=== PATIENT | male | born 1935 | race Caucasian/White ===

== ENCOUNTER 2017-10-09 11:07 | Day surgery (SDC) | payer MEDICARE, BC ==
[~2017-10-09] VITALS: Ht 177.8 cm; Wt 87.2 kg
[2017-10-09] VITALS (10 sets, daily range): BP systolic 123–154; BP diastolic 75–95; PULSE 63–79; TEMP 97.3–97.4
[~2017-10-09 11:07] MED LIST: CENTRUM SILVER1 CTB PO; EPA FISH OIL1 SGL PO; GINKO; IBUPROFEN 200200 MG PO; MAG-OX 400400 MG/TAB PO; MOTRIN 200200 MG/TAB PO; SAW PALMETTO PO; VITAMIN E 400 U4001 PO; VITAMIN E800 IU PO
[2017-10-09] MEDS ORDERED: TRUSOPT OCUMETE10 ML (11:31)
[2017-10-09] MEDS ORDERED: VITAMINC1000TA PO (16:43)
[2017-10-09] MEDS ORDERED: VITAMIN D31000 I1 PO (16:44)
[2017-10-10 00:13] VITALS: BP 123/72; PULSE 68; TEMP 98.1
[2017-10-10 04:57] VITALS: BP 128/72; PULSE 64; TEMP 98.2
[2017-10-10 10:14] VITALS: BP 128/75; PULSE 77; TEMP 98.1
== END 2017-10-10 13:50 | disposition home or self-care (01) ==
LOC: SDCO 11:07 → SURG 15:52 → SDCO 10-10 13:50
DX: C67.5 Malignant neoplasm of bladder neck (principal); C61 Malignant neoplasm of prostate; N30.90 Cystitis, unspecified without hematuria; H40.9 Unspecified glaucoma; Z87.891 Personal history of nicotine dependence; Z80.0 Family history of malignant neoplasm of digestive organs; Z68.24 Body mass index [BMI] 24.0-24.9, adult
CPT/HCPCS: OP; A9284; C1769; C2617; J0360; J0690; J1100; J2405; J2704; J3010; J7120; Q9967

== ENCOUNTER 2017-10-22 21:00 | Emergency (ER) | payer MEDICARE, BC ==
[~2017-10-22] VITALS: Ht 177.8 cm; Wt 79.5 kg
[~2017-10-22 21:00] MED LIST changes: +TRUSOPT OCUMETE10 ML; +VITAMIN D31000 I1 PO; +VITAMINC1000TA PO
[2017-10-22 21:05] VITALS: BP 190/101; TEMP 98.8
[2017-10-22 22:48] VITALS: PULSE 85
[2017-10-22] MEDS ORDERED: MACROBID 1100 MG/CAP PO (22:56)
[2017-10-22] MEDS ORDERED: PYRIDIUM 100MG100 MG PO (23:25)
[2017-10-22] MEDS ORDERED: COSOPT 2%-0.5%10 ML OU (23:25)
== END 2017-10-22 23:00 | disposition home or self-care (01) ==
LOC: COL.ER 21:00
DX: R33.9 Retention of urine, unspecified (principal); Z87.430 Personal history of prostatic dysplasia

== ENCOUNTER → 2018-02-26 | Outpatient (CLI) | payer MEDICARE, BC ==
[~2018-02-26] MED LIST changes: +COSOPT 2%-0.5%10 ML OU; +MACROBID 1100 MG/CAP PO; +PYRIDIUM 100MG100 MG PO
== END ==
LOC: COL.RAD 07:43
DX: N28.9 Disorder of kidney and ureter, unspecified (principal); N32.89 Other specified disorders of bladder; N13.2 Hydronephrosis with renal and ureteral calculous obstruction; Q63.1 Lobulated, fused and horseshoe kidney; N28.1 Cyst of kidney, acquired; K76.89 Other specified diseases of liver; K42.9 Umbilical hernia without obstruction or gangrene; Z85.51 Personal history of malignant neoplasm of bladder; Z85.46 Personal history of malignant neoplasm of prostate
CPT/HCPCS: Q9967

== ENCOUNTER 2018-03-19 13:07 | Day surgery (SDC) | payer MEDICARE, BC ==
[~2018-03-19] VITALS: Ht 179.1 cm; Wt 71.4 kg
[~2018-03-19 13:07] MED LIST changes: +COSOPT 2%-0.5%10 ML OD; -COSOPT 2%-0.5%10 ML OU
[2018-03-19] MEDS ORDERED: TIMOLOL MALEATE5 M1 OD (13:25)
[2018-03-19] MEDS ORDERED: AVODART 0.5MG0.5 MG PO (13:26)
[2018-03-19] MEDS ORDERED: FLOMAX 0.40.4 MG/CAP PO (13:26)
[2018-03-19 13:33] VITALS: BP 142/87; PULSE 78; TEMP 98.1
[2018-03-19 17:00] VITALS: BP 133/76; PULSE 78
[2018-03-19 17:15] VITALS: BP 128/73; PULSE 68
[2018-03-19 17:30] VITALS: BP 126/66; PULSE 96
[2018-03-19 17:34] VITALS: TEMP 97.6
[2018-03-19 17:45] VITALS: BP 125/77; PULSE 79
== END 2018-03-19 19:40 | disposition home or self-care (01) ==
LOC: SDCO 13:07 → SURG 17:15 → SDCO 19:40
DX: N20.1 Calculus of ureter (principal); C66.1 Malignant neoplasm of right ureter; Z85.46 Personal history of malignant neoplasm of prostate; Z85.51 Personal history of malignant neoplasm of bladder; Z88.2 Allergy status to sulfonamides; Z87.891 Personal history of nicotine dependence
CPT/HCPCS: OP; C1769; J0690; J1100; J2405; J2704; J3010; Q9967

== ENCOUNTER 2018-05-28 08:02 | Day surgery (SDC) | payer MEDICARE, BC ==
[~2018-05-28] VITALS: Ht 170.2 cm; Wt 69.7 kg
[~2018-05-28 08:02] MED LIST changes: +AVODART 0.5MG0.5 MG PO; +FLOMAX 0.40.4 MG/CAP PO; +GINKGO60 MG PO; +MAGNESIUM CITR100 MG PO; +TIMOLOL MALEATE5 M1 OD
[2018-05-28 08:46] LABS: BASO # 0.1 (0.0-0.2); BASO % 1.1 % (0.0-2.0); EOS # 0.2 (0.0-0.7); EOS % 3.4 % (0-4.0); GRAN # 2.7 (1.4-6.5); GRAN % 51.6 % (42.2-75.2); HEMATOCRIT 43.4 % (42.0-52.0); HEMOGLOBIN 14.6 g/dl (13.5-18.0); LYMPH # 1.6 (1.2-3.4); LYMPH % 30.7 % (20.0-51.0); MEAN CELL VOLUME 96 fl (80.0-100.0); MEAN CORPUSCULAR HEMOGLOBIN 32 pg (27.0-31.0); MEAN CORPUSCULAR HGB CONC 34 g/dl (33.0-37.0); MEAN PLATELET VOLUME 8.8 fl (7.4-10.4); MONO # 0.7 (0.1-0.6); MONO % 12.8 % (1.7-9.3); PLATELET COUNT 262 K/mm3 (130-400); RED BLOOD COUNT 4.53 M/mm3 (4.20-5.60); REDCELL DISTRIBUTION WIDTH-CV 13.6 % (11.5-14.5)
[2018-05-28] MEDS ORDERED: VITAMIN C500 MG PO (09:13)
[2018-05-28] MEDS ORDERED: BETIMOL 0.5% OPH5 ML OD (09:17)
[2018-05-28] MEDS ORDERED: XALATAN EYE DROPS OD (09:18)
[2018-05-28 09:19] VITALS: BP 153/81; PULSE 64; TEMP 97.6
[2018-05-28 12:47] VITALS: TEMP 97.8
[2018-05-28 13:15] VITALS: BP 128/71; PULSE 64
[2018-05-28 13:30] VITALS: BP 121/65; PULSE 62
[2018-05-28 13:45] VITALS: BP 136/77; PULSE 67
[2018-05-28] MEDS ORDERED: NORCO 325 MG-51 TAB PO (13:54)
[2018-05-28 14:00] VITALS: BP 121/68; PULSE 68
== END 2018-05-28 14:37 | disposition home or self-care (01) ==
LOC: SDCO 08:02
PROVIDERS: Urology
DX: K40.90 Unilateral inguinal hernia, without obstruction or gangrene, not specified as recurrent (principal); C67.5 Malignant neoplasm of bladder neck; R35.0 Frequency of micturition; R35.1 Nocturia; Z85.46 Personal history of malignant neoplasm of prostate; Z85.51 Personal history of malignant neoplasm of bladder; Z79.899 Other long term (current) drug therapy; Z87.891 Personal history of nicotine dependence; Z80.0 Family history of malignant neoplasm of digestive organs; Z86.010 Personal history of colon polyps
CPT/HCPCS: C1769; C1781; J0690; J1100; J1885; J2405; J2704; J2710; J3010; J7120

== ENCOUNTER 2020-07-08 14:21 | Inpatient (IN) | payer MEDICARE, BC ==
[~2020-07-08] VITALS: Ht 177.8 cm; Wt 63.6 kg
[~2020-07-08 14:21] MED LIST changes: +BETIMOL 0.5% OPH5 ML OD; +CARDURA4 MG PO; +ISTALOL 2.5 ML2.5 ML OD; +NORCO 325 MG-51 TAB PO; +VITAMIN C500 MG PO; +XALATAN EYE DROPS OD
[2020-07-08 15:16] LABS: BASO % 0.3 % (0.0-2.0); EOS % 0.1 % (0-4.0); GRAN # 11.8 (1.4-6.5); GRAN % 86.8 % (42.2-75.2); HEMOGLOBIN 11.9 g/dl (13.5-18.0); LYMPH % 7.3 % (20.0-51.0); MEAN CELL VOLUME 96 fl (80.0-100.0); MEAN CORPUSCULAR HEMOGLOBIN 33 pg (27.0-31.0); MEAN CORPUSCULAR HGB CONC 34 g/dl (33.0-37.0); MEAN PLATELET VOLUME 8.9 fl (7.4-10.4); MONO # 0.7 (0.1-0.6); MONO % 4.8 % (1.7-9.3); PLATELET COUNT 274 K/mm3 (130-400); RED BLOOD COUNT 3.65 M/mm3 (4.20-5.60)
[2020-07-08 15:17] LABS: HEMATOCRIT 35.1 % (42.0-52.0)
[2020-07-08 15:24] LABS: INR 1.1 (0.8-3.0); PROTHROMBIN TIME 11.9 SECONDS (9.7-12.8)
[2020-07-08 15:25] LABS: ALANINE AMINOTRANSFERASE 29 U/L (4-49); ALBUMIN 3.9 gm/dL (3.5-5.0); ALKALINE PHOSPHATASE 75 U/L (50-136); ANION GAP 6 mmol/L (7-16); AST,SGOT 45 U/L (15-37); BILIRUBIN,TOTAL 0.6 mg/dL (0.0-1.0); BLOOD UREA NITROGEN 27 mg/dL (9-20); CALCIUM 9.3 mg/dL (8.4-10.2); CARBON DIOXIDE 27 mmol/L (22-30); CHLORIDE 101 mmol/L (98-107); CREATININE, serum 0.73 (0.66-1.25); GLUCOSE 113 mg/dL (74-106); POTASSIUM 4.6 mmol/L (3.4-5.0); SODIUM 134 mmol/L (137-145)
[2020-07-08 15:49] LABS: TROPONIN-I < 0.012 ng/mL (0.000-0.035)
[2020-07-08 17:02] LABS: COLLECTION METHOD CLEAN CATCH
[2020-07-08 17:03] VITALS: BP 130/73; PULSE 87; TEMP 98.3
[2020-07-08 17:20] LABS: AMORPHOUS CRYSTAL Present /uL; PH 7 (5-8); SQUAMOUS EPITHELIAL None Seen /hpf; URINE APPEARANCE Cloudy; URINE BACTERIA Moderate /hpf; URINE BILIRUBIN Negative (NEGATIVE); URINE BLOOD 2+ (NEGATIVE); URINE COLOR Yellow; URINE GLUCOSE Negative (NEGATIVE); URINE KETONE 1+ (NEGATIVE); URINE LEUKOCYTE ESTERASE 2+ (NEGATIVE); URINE NITRATE Negative (NEGATIVE); URINE PROTEIN(semi-quant) 2+ (NEGATIVE); URINE RBC >50 /hpf; URINE UROBILINOGEN Negative (NEGATIVE)
--- NOTE | 2020-07-08 19:34 | NUR ---
Patient admitted to room 327. Inital, 5 page, & med rec completed. Patient alert & oriented. Denies the need for pain medication at this time. all setteled in room. Bedside report to Kaelyn RN
[2020-07-08 20:46] VITALS: BP 119/73; PULSE 81; TEMP 98
[2020-07-08] MEDS ORDERED: MELATONIN3 M1 PO (22:22)
--- NOTE | 2020-07-08 22:30 | NUR ---
PT ASKING FOR TYLENOL FOR RT LEG PAIN. IS ALERT AND ORIENTED X4. DOES OWN HS EYE DROPS. VOIDING PER URINAL WITHOUT PROBLEM. IS NPO AFTER MIDNIGHT FOR AM SURGERY.
--- NOTE | 2020-07-08 23:15 | NUR ---
ASKING FOR STRONGER PAIN MED, MORPHINE 2MG IVP GIVEN AT THIS TIME.
--- NOTE | 2020-07-08 23:23 | NUR ---
DR VENICE ABBOTT FOR PATIENT TO HAVE MELATONIN 6MG PO FOR SLEEP, GIVEN AT THIS TIME.
[2020-07-09] VITALS (12 sets, daily range): BP systolic 94–114; BP diastolic 48–79; PULSE 63–89; TEMP 97.3–98.6
--- NOTE | 2020-07-09 06:00 | NUR ---
PT HAS BEEN NPO SINCE MIDNIGHT FOR SURGERY THIS AM. NECKLACE REMOVED AND RING TAPED. PREOP CHECK LIST DONE.
--- NOTE | 2020-07-09 06:25 | NUR ---
To surgery per bed.
--- NOTE | 2020-07-09 09:49 | NUR ---
PT TO ROOM 327 PER BED WITH REPORT FROM MIKEY BERRIOS PACU @6725. PT IS A/O X3, LUNGS CLEAR, BOWEL SOUNDS PRESENT. DRESSING TO RIGHT HIP CDI WITH BULKY DRESSINGS OVER INCISION. PT HAD HEMIARTHROPLASTY WITH DR SONG.
--- NOTE | 2020-07-09 10:22 | NUR ---
HOSPITALIST IN TO SEE PT. CONTACTED AND GAVE UPDATES. PT RESTING VSS. DRESSING TO RIGHT HIP CDI.
--- NOTE | 2020-07-09 12:42 | NUR ---
Professor Of Art History offered prayer and support with patient.
[2020-07-09 15:28] LABS: BASO % 0.3 % (0.0-2.0); EOS % 0.1 % (0-4.0); GRAN # 11.1 (1.4-6.5); GRAN % 82.2 % (42.2-75.2); HEMATOCRIT 36.1 % (42.0-52.0); HEMOGLOBIN 11.9 g/dl (13.5-18.0); LYMPH # 1.2 (1.2-3.4); LYMPH % 8.7 % (20.0-51.0); MEAN CELL VOLUME 97 fl (80.0-100.0); MEAN CORPUSCULAR HEMOGLOBIN 32 pg (27.0-31.0); MEAN CORPUSCULAR HGB CONC 33 g/dl (33.0-37.0); MEAN PLATELET VOLUME 9.1 fl (7.4-10.4); MONO # 1.1 (0.1-0.6); MONO % 8.3 % (1.7-9.3); PLATELET COUNT 264 K/mm3 (130-400); RED BLOOD COUNT 3.71 M/mm3 (4.20-5.60); REDCELL DISTRIBUTION WIDTH-CV 14.3 % (11.5-14.5)
[2020-07-09 15:35] LABS: ALBUMIN 3.3 gm/dL (3.5-5.0); BILIRUBIN,TOTAL 0.3 mg/dL (0.0-1.0); CALCIUM 9.1 mg/dL (8.4-10.2); CREATININE, serum 0.69 (0.66-1.25); POTASSIUM 3.9 mmol/L (3.4-5.0)
--- NOTE | 2020-07-09 16:03 | NUR ---
SW met with patient to complete intake. Patient states that he lives in [place] with is Susanne [phone]. Patient provides that he currently does not utilize a walker or a cane. Patient recently had a hip fracture and will potentially need DME upon discharge, as well as PT/OT services, if not placed in rehab facility for strengthening. Patient provides that his PCP is Dr. Carrion, pharmacy is [facility], and that he is able to afford his medications at this time. Patient provides that his Susanne has been appointed as his DPOA-HC. SW will continue to follow.
--- NOTE | 2020-07-09 16:10 | NUR ---
MARIBELL called patient's spouse to inquire about DPOA documentation. Susanne stated that she has the documentation and will bring it by some time tomorrow 07/10/20. MARIBELL will continue to follow.
--- NOTE | 2020-07-09 17:26 | NUR ---
REPORT TO ROSY BERRIOS.
--- NOTE | 2020-07-09 21:23 | NUR ---
Medicated with HS meds including [place] 1 tab for rt leg and left heel pain. Is alert and oriented x4. Has large bulky drsg to right hip, ice pack placed. Has cerda catheter to BSD with yellow urine. Denies desire to brush teeth at this time. SL to right AC flushes well, scheduled Toradol given. SCDS and TEDS on.
[2020-07-10 00:18] VITALS: BP 97/62; PULSE 70; TEMP 98
[2020-07-10 03:47] VITALS: BP 104/67; PULSE 88; TEMP 97.9
--- NOTE | 2020-07-10 06:29 | NUR ---
Ortho here, changes drsg to right hip.
[2020-07-10 06:58] LABS: CREATININE, serum 0.72 (0.66-1.25); POTASSIUM 4.3 mmol/L (3.4-5.0)
[2020-07-10 07:40] LABS: BASO # 0.1 (0.0-0.2); BASO % 0.5 % (0.0-2.0); EOS # 0.2 (0.0-0.7); EOS % 1.4 % (0-4.0); GRAN % 72.7 % (42.2-75.2); HEMOGLOBIN 11.4 g/dl (13.5-18.0); LYMPH # 1.6 (1.2-3.4); LYMPH % 14.4 % (20.0-51.0); MEAN CELL VOLUME 97 fl (80.0-100.0); MEAN CORPUSCULAR HEMOGLOBIN 33 pg (27.0-31.0); MEAN CORPUSCULAR HGB CONC 34 g/dl (33.0-37.0); MEAN PLATELET VOLUME 9.2 fl (7.4-10.4); MONO # 1.2 (0.1-0.6); MONO % 10.6 % (1.7-9.3); PLATELET COUNT 250 K/mm3 (130-400); RED BLOOD COUNT 3.51 M/mm3 (4.20-5.60); REDCELL DISTRIBUTION WIDTH-CV 14.3 % (11.5-14.5)
[2020-07-10 07:45] VITALS: BP 123/77; PULSE 92; TEMP 98.1
--- NOTE | 2020-07-10 09:45 | NUR ---
Patient alert and oriented, answers questions appropriately. See assessment. Right hip dressing CDI, no redness or drainage noted. Slight edema noted to right hip, pulses palpable, neuros intact. No c/o numbness or tingling. Post op exercises reviewed with patient. FWB with walker and SBA. No c/o at this time.
[2020-07-10 11:16] VITALS: BP 113/75; PULSE 86; TEMP 97.7
--- NOTE | 2020-07-10 12:56 | NUR ---
SW received referal for IPR for patient. CHINYERE met patient at his bedside to discuss options and provide patient with med.gov compare forms. Patient adamately refused services, indicating that her receives services from [facility]." SW reported speaking to patients nurses who tend to feel that patient may need more intense services, and IPR would meet those needs. Patient continued to decline IPR services, reporting that his would not like it and that he did not "want to live here." CHINYERE tried to explain services, and benefits to receiving IPR care, and asked if perhaps the situation could be discussed with his to see her view on this situation. Patient verbally agreed that Chinyere could speak to his , and indicated that he is going to call her before i did. CHINYERE called Patients Susanne at [phone], who also indicated that they would have to discuss different options because she feels like she can take care of her at home, and he would not like being in a facility for several weeks. CHINYERE then contacted hospitalist and informed her of patients concerns. Hospitalist said she would speak to facility doctor, and will update CHINYERE.
[2020-07-10 14:55] VITALS: BP 126/69; PULSE 94; TEMP 97.8
--- NOTE | 2020-07-10 18:25 | NUR ---
Shaffer catheter removed per drs order at 1800, tolerated well.
[2020-07-10 21:07] VITALS: BP 115/68; PULSE 95; TEMP 98
--- NOTE | 2020-07-10 21:30 | NUR ---
PT IN BED. IS ALERT AND ORIENTED X4. REPORTS NO PAIN TO RIGHT HIP. AQUACEL DRSG INTACT WITH ICE PACK ON. HAS SL TO RIGHT AC, LAST DOSE OF TORADOL GIVEN. PT REPORTS HE IS GOING HOME TOMORROW AND NOT GOING TO ANY REHAB. HAS VOIDED PER URINAL X1. TAKES HS MEDS WITHOUT PROBLEM.
--- NOTE | 2020-07-11 02:26 | NUR ---
Assisted to bathroom for BM. Gait slow and shuffled, uses walker and gait belt. No success and returns to bed with supervision. Able to put legs in bed on own.
[2020-07-11 04:54] VITALS: BP 105/64; PULSE 86; TEMP 97.9
--- NOTE | 2020-07-11 06:19 | NUR ---
Up to bathroom with gait belt and walker, has large soft formed BM. Back to bed at this time. Denies pain.
[2020-07-11 06:48] LABS: HEMOGLOBIN 10.7 g/dl (13.5-18.0)
--- NOTE | 2020-07-11 06:50 | NUR ---
Sitting up in bed watching TV. Alert and oriented x4. Denies pain at this time. Patient says that he provider was already in this morning and he is going to get to go home. Aquacel to right hip CDI. Patient denies needs at this time.
[2020-07-11 07:03] LABS: HEMATOCRIT 31.8 % (42.0-52.0)
[2020-07-11 07:24] VITALS: BP 116/73; PULSE 96; TEMP 98.7
[2020-07-11] MEDS ORDERED: ASPI325T6 PO (08:41)
[2020-07-11] MEDS ORDERED: TYLENOL 325MG325 MG PO (08:45)
[2020-07-11] MEDS ORDERED: ULTRAM 50MG TAB50 MG PO (08:49)
--- NOTE | 2020-07-11 11:41 | NUR ---
Patient to discharge home today with outpatient Physical Therapy. MARIBELL collaborated with JESSE Vidales who advised patient will need a front wheeled walker before discharge. MARIBELL met with patient who chose [facility] to order FWW. MARIBELL spoke with Linh at [facility] and faxed referral and order for FWW. MARIBELL contacted patient's , Susanne who advised she will seed cone picker FWW at [facility] before picking up patient this afternoon. No additional needs at this time.
[2020-07-11 12:00] VITALS: BP 102/72; PULSE 100; TEMP 97.7
--- NOTE | 2020-07-11 12:40 | NUR ---
Review all discharge paperwork with the patient. Questions answered. Patient verbalizes understanding to all and signs all discharge paperwork. Discharge packet provided to the patient. Patient says that his will come to ER entrance around 1400 to pick him up. Denies additional needs at this time.
--- NOTE | 2020-07-11 13:38 | NUR ---
Patient calls and says that his is at the ER entrance to pick him up. Patient assisted out to POV with all personal belongings via wheel chair by JASMEET Lares.
== END 2020-07-11 13:39 | disposition home or self-care (01) | DRG 522 ==
LOC: COL.ER 14:21 → JCC 16:12
PROVIDERS: Emergency Medicine; Orthopaedic Surgery; Physician Assistant; Student in an Organized Health Care Education/Training Program; ADMIT Family Medicine
PROC: 0SRR0J9 Replacement of Right Hip Joint, Femoral Surface with Synthetic Substitute, Cemented, Open Approach (ICD-10-PCS; principal; 2020-07-09 07:30)
DX: S72.031A Displaced midcervical fracture of right femur, initial encounter for closed fracture (principal); N39.0 Urinary tract infection, site not specified; D64.9 Anemia, unspecified; H40.9 Unspecified glaucoma; Z85.46 Personal history of malignant neoplasm of prostate; Z85.51 Personal history of malignant neoplasm of bladder; Z87.891 Personal history of nicotine dependence; Z88.2 Allergy status to sulfonamides; Z20.828 Contact with and (suspected) exposure to other viral communicable diseases; W19.XXXA Unspecified fall, initial encounter
CPT/HCPCS: 99222-AI; 99232-AI; 99239; A4314; A9284; C1776; J0696; J1885; J2270; J2370; J2405; J2704; J3010; J7030; J7120

== ENCOUNTER 2020-11-17 06:09 | Day surgery (SDC) | payer MEDICARE, BC ==
[~2020-11-17] VITALS: Ht 177.8 cm; Wt 65.3 kg
[~2020-11-17 06:09] MED LIST changes: +ASPI325T6 PO; +MELATONIN3 M1 PO; +TYLENOL 325MG325 MG PO; +ULTRAM 50MG TAB50 MG PO
[2020-11-17 06:38] VITALS: BP 132/81; PULSE 74; TEMP 97.8
[2020-11-17] MEDS ORDERED: PROBIOTIC FORMU1 CAP PO (07:20)
[2020-11-17] MEDS ORDERED: DUO-KAPS1 CAP PO (07:20)
[2020-11-17] MEDS ORDERED: OMEGA-3 1000 MG1 CAP PO (07:21)
[2020-11-17] MEDS ORDERED: TURMERIC500 MG PO (07:21)
[2020-11-17] MEDS ORDERED: VITAMIN C500 MG PO (07:22)
[2020-11-17] MEDS ORDERED: MASON NATURAL2000 IU PO (07:23)
[2020-11-17] MEDS ORDERED: NATURAL E400 IU PO (07:24)
[2020-11-17] MEDS ORDERED: GINKGO3 PO (07:25)
[2020-11-17] MEDS ORDERED: MAGNESIUM CITR100 MG PO (07:26)
[2020-11-17] MEDS ORDERED: PHARMASSURE ZIN50 MG PO (07:26)
[2020-11-17] MEDS ORDERED: NATURAL SAW PA160 MG PO (07:27)
[2020-11-17] MEDS ORDERED: PROSTATE PO (07:28)
[2020-11-17] MEDS ORDERED: PYGEUM PO (07:29)
[2020-11-17 10:09] VITALS: TEMP 97.8
[2020-11-17 10:40] VITALS: BP 121/72; PULSE 63
--- NOTE | 2020-11-17 10:40 | NUR ---
Patient returns to room 8 per cart from PACU and is awake and alert. Patient is laying on the left side. Incisions x3 to abdomen clean and dry with wound edges well approixmated and covered with Exofin. Temp 97.2 and sats 97% on 2L per nasal cannula. Spouse in room. Siderails up x2 and call light in reach. Coccyx less red than on admission.
[2020-11-17 10:55] VITALS: BP 109/63; PULSE 61
--- NOTE | 2020-11-17 11:05 | NUR ---
Continues to rest on side and is talking with spouse. Denies pain or nausea.
[2020-11-17 11:10] VITALS: BP 107/60; PULSE 61
--- NOTE | 2020-11-17 11:10 | NUR ---
Continues to rest and denies pain or nausea.
--- NOTE | 2020-11-17 11:25 | NUR ---
Patient assisted up to the bathroom and gait is steady. Ambulates with cane and spouse walks by side. Patient voids and returns to room. Sitting in chair and sipping on juice and eating breakfast bar.
--- NOTE | 2020-11-17 12:10 | NUR ---
Continues to deny pain or nausea. Wishes to go home. Given dismissal instructions and follow up appointment. Dismissal instructions signed. Instructed to take pain medications that he has at home from prior surgery. Also instructed that he may take Motrin and Tylenol. Spouse and patient voice understanding of these.
--- NOTE | 2020-11-17 12:23 | NUR ---
Patient dismissed to home driven by spouse and taken to the front door per wheelchair and assisted into vehicle with instructions in hand.
== END 2020-11-17 12:23 | disposition home or self-care (01) ==
LOC: SDCO 06:09
DX: K40.90 Unilateral inguinal hernia, without obstruction or gangrene, not specified as recurrent (principal); K41.90 Unilateral femoral hernia, without obstruction or gangrene, not specified as recurrent; Z85.46 Personal history of malignant neoplasm of prostate; I10 Essential (primary) hypertension; Z96.641 Presence of right artificial hip joint; Z80.3 Family history of malignant neoplasm of breast; Z88.2 Allergy status to sulfonamides; Z91.013 Allergy to seafood; M19.90 Unspecified osteoarthritis, unspecified site; D64.9 Anemia, unspecified
CPT/HCPCS: C1781; J0690; J2405; J2704; J3010; J7120

== ENCOUNTER 2020-12-17 07:51 | Inpatient (IN) | payer MEDICARE, BC ==
[2020-12-17] VITALS (549 sets, daily range): BP systolic 90–98; BP diastolic 57–75; PULSE 82–90; TEMP 97.8–98.5; O2SAT 73–100
[~2020-12-17] VITALS: Ht 177.8 cm; Wt 70.0 kg
[~2020-12-17 07:51] MED LIST changes: +DUO-KAPS1 CAP PO; +GINKGO3 PO; +MASON NATURAL2000 IU PO; +NATURAL E400 IU PO; +NATURAL SAW PA160 MG PO; +OMEGA-3 1000 MG1 CAP PO; +PHARMASSURE ZIN50 MG PO; +PROBIOTIC FORMU1 CAP PO; +PROSTATE PO; +PYGEUM PO; +TURMERIC500 MG PO
[2020-12-17 08:34] LABS: HEMOGLOBIN 11.3 g/dl (13.5-18.0); MEAN CELL VOLUME 89 fl (80.0-100.0); MEAN CORPUSCULAR HEMOGLOBIN 31 pg (27.0-31.0); MEAN CORPUSCULAR HGB CONC 34 g/dl (33.0-37.0); MEAN PLATELET VOLUME 9.8 fl (7.4-10.4); PLATELET COUNT 451 K/mm3 (130-400); RED BLOOD COUNT 3.68 M/mm3 (4.20-5.60)
[2020-12-17 08:37] LABS: HEMATOCRIT 32.9 % (42.0-52.0)
[2020-12-17 08:41] LABS: COLLECTION METHOD CLEAN CATCH
[2020-12-17 08:47] LABS: ALANINE AMINOTRANSFERASE 22 U/L (4-49); ALKALINE PHOSPHATASE 60 U/L (50-136); ANION GAP 8 mmol/L (7-16); AST,SGOT 24 U/L (15-37); BILIRUBIN,TOTAL 0.6 mg/dL (0.0-1.0); BLOOD UREA NITROGEN 21 mg/dL (9-20); CALCIUM 8.6 mg/dL (8.4-10.2); CARBON DIOXIDE 24 mmol/L (22-30); CHLORIDE 103 mmol/L (98-107); CREATININE, serum 0.69 (0.66-1.25); GLUCOSE 140 mg/dL (74-106); LIPASE 43 U/L (23-300); POTASSIUM 4.2 mmol/L (3.4-5.0); SODIUM 134 mmol/L (137-145); TOTAL PROTEIN 6.6 gm/dL (6.4-8.2)
[2020-12-17 09:03] LABS: TROPONIN-I < 0.012 ng/mL (0.000-0.035)
[2020-12-17 09:03] LABS: AMORPHOUS CRYSTAL Present /uL; MUCOUS Present /lpf; PH 6 (5-8); SQUAMOUS EPITHELIAL None Seen /hpf; URINE APPEARANCE Cloudy; URINE BACTERIA Moderate /hpf; URINE BILIRUBIN Negative (NEGATIVE); URINE BLOOD 3+ (NEGATIVE); URINE COLOR Amber; URINE GLUCOSE Negative (NEGATIVE); URINE KETONE Trace (NEGATIVE); URINE LEUKOCYTE ESTERASE 2+ (NEGATIVE); URINE NITRATE Positive (NEGATIVE); URINE PROTEIN(semi-quant) 2+ (NEGATIVE); URINE RBC >50 /hpf; URINE UROBILINOGEN Negative (NEGATIVE)
[2020-12-17 09:25] LABS: INR 1.5 (0.8-3.0); PROTHROMBIN TIME 16.5 SECONDS (9.7-12.8)
[2020-12-17 09:28] LABS: PARTIAL THROMBOPLASTIN TIME 28.9 SECONDS (26.0-37.0)
[2020-12-17 10:01] LABS: BAND 3 % (0-10); LYMPHOCYTE 6 % (20.0-51.0); NEUTROPHILS 87 % (42.0-75.2)
[2020-12-17 10:02] LABS: PLATELET ESTIMATE INCREASED (NORMAL)
--- NOTE | 2020-12-17 13:55 | NUR ---
Vancomycin Initial Dosing Pharmacy Note Ordering provider: Chelsea Fernandes M, MD Indication/duration: PNA, 7 days LABS: SCr 0.69, CrCl~60, GFR 110 Recommendation: Will start Vancomycin 1 gm IV q12h. Pharmacy will continue to closely monitor and check a Vancomycin trough on 12/19/20. Loading dose: 1 grams Maintenance dose: 1 gram every 12 hours Trough goal: 15-20 ug/mL
[2020-12-17 15:06] LABS: PLEURAL FLUID WBC 17238 /mm3
[2020-12-17 15:08] LABS: PLEURAL FLUID RBC 12000 /mm3 (0-0)
[2020-12-17 15:11] LABS: GLUCOSE,PLEURAL FLUID < 20 mg/dL; PLEURAL FLUID COLOR BROWN
[2020-12-17 15:13] LABS: PLEURAL FLUID APPEARANCE TURBID
--- NOTE | 2020-12-17 19:30 | NUR ---
Received report from AGUSTINA Bansal. All medications verified and all questions answered. Patient resting in bed watching TV. NS running at 125mls/hr. No concerns or complaints noted from patient at this time. VSS. Will resume care at this time./
[2020-12-18] VITALS (666 sets, daily range): BP systolic 67–117; BP diastolic 50–85; PULSE 61–122; TEMP 98–98.8; O2SAT 59–99
--- NOTE | 2020-12-18 00:34 | NUR ---
This nurse notified Dr. Zepeda with [facility] of patient situation and BP continuing to decrease down to 60s/40s and appearing cool and clammy and pale. Notified that patient stated he felt fine though. All other VSS. Nurse stated patient had NS running at 125mls/hr and had 3+ pitting edema noted in lower extremities. Lung sounds coarse bilaterally and diminished more on the right side. Received orders to give 500ml bolus of NS, start levophed gtt and place central line. This nurse then notified KARLI Pond, of patient condition and orders received by KARLI STEWART agreed with orders given and stated to change patient to ICU status, decrease NS to 100mls/hr and that she would come put eyes on the patient. Dr. Enrique was notified at 0045 of patient condition and need for central line placement d/t starting levophed gtt and decreasing pressures. Consent was received for central line placement and witnessed by this RN and Charge, RN. Dr. Enrique state he would be in to place central line. Central line insertion started at [address] Enrique and completed at 0146. VS remained stable throughout central line insertion. CXR ordered and noted to verify placement of central line and that central line was able to be used.
--- NOTE | 2020-12-18 03:18 | NUR ---
LEVOPHED GTT STARTED AT 0.1MCG/KG/MIN OR 25.6MLS/HR.
[2020-12-18 05:32] LABS: ARTERIAL BLD GAS O2 SATURATION 96.7 % (92-100); ARTERIAL BLD GAS TCO2 CT 26.3; ARTERIAL BLOOD GAS BASE EXCESS 0.5 (-2-2); ARTERIAL BLOOD GAS HCO3 25.1 meq/L (22-26); ARTERIAL BLOOD GAS PCO2 40.4 mmHg (35-45); ARTERIAL BLOOD GAS PO2 91.1 mmHg (80-100); ARTERIAL BLOOD GAS pH 7.41 (7.35-7.45)
[2020-12-18 05:46] LABS: BASO # 0.1 (0.0-0.2); BASO % 0.2 % (0.0-2.0); EOS % 0.1 % (0-4.0); GRAN # 20.4 (1.4-6.5); GRAN % 84.8 % (42.2-75.2); LYMPH # 1.7 (1.2-3.4); LYMPH % 7.1 % (20.0-51.0); MEAN CELL VOLUME 92 fl (80.0-100.0); MEAN CORPUSCULAR HGB CONC 34 g/dl (33.0-37.0); MONO # 1.6 (0.1-0.6); MONO % 6.8 % (1.7-9.3); PLATELET COUNT 424 K/mm3 (130-400); RED BLOOD COUNT 3.13 M/mm3 (4.20-5.60); REDCELL DISTRIBUTION WIDTH-CV 14.4 % (11.5-14.5)
[2020-12-18 05:51] LABS: HEMATOCRIT 28.9 % (42.0-52.0); HEMOGLOBIN 9.7 g/dl (13.5-18.0); MEAN CORPUSCULAR HEMOGLOBIN 31 pg (27.0-31.0)
[2020-12-18 06:04] LABS: CALCIUM 8.2 mg/dL (8.4-10.2); CREATININE, serum 0.66 (0.66-1.25)
--- NOTE | 2020-12-18 09:10 | NUR ---
PT back from OR. Chest tube placement to right side. Dressing dry and intact. PT alert and answering questions appropriately. Water seal chest drain is secured. is bedside.
--- NOTE | 2020-12-18 11:42 | NUR ---
SW met with patient to complete intake. Patient's Susanne [phone], present. Patient states that he lives with spouse in [place], [place]. Patient provides that he utilizes a walker, but is independent with ADL's. Patient provides his PCP is Dr. Carrion, pharmacy is [facility], and is able to afford his medications. Patient states that his is his DPOA-HC and stated that that patient has been here serveral times and has a copy of the DPOA-HC document. Patient provides that his plan is to go back to his home [place] and he states he has no concerns with doing so at this time. SW will continue to follow.
--- NOTE | 2020-12-18 20:00 | NUR ---
Assessment complete. Pt is AXO X3, states he has pain to his chest tube insertion site rated at a 4/10. Pt is sitting up in the bed watching TV at this time and he denies further needs. Call light within reach.
[2020-12-19] VITALS (304 sets, daily range): BP systolic 102–121; BP diastolic 67–90; PULSE 74–91; TEMP 97.4–98.4; O2SAT 45–100
--- NOTE | 2020-12-19 07:05 | NUR ---
RECEIVED REPORT FROM AGUSTINA WHITE. PT ON 4L VIA NC. VSS. NOTED RATTLING IN THROAT PT BREATHES, WEAK COUGH. PT REPOSITIONED TO SIT UP TO EAT BREAKFAST. NOTED PT IS VERY WEAK AND ASSISTING MINIMALLY FOR REPOSITIONING. CALL LIGHT WITHIN REACH. RT SIDE CHEST TUBE NOTED TO SUCTION.
--- NOTE | 2020-12-19 07:08 | NUR ---
Bedside shift report given to AGUSTINA Chatterjee.
[2020-12-19 10:02] LABS: BASO % 0.1 % (0.0-2.0); EOS % 0.1 % (0-4.0); GRAN # 18.6 (1.4-6.5); GRAN % 89.6 % (42.2-75.2); HEMOGLOBIN 10.3 g/dl (13.5-18.0); LYMPH # 0.9 (1.2-3.4); LYMPH % 4.1 % (20.0-51.0); MEAN CELL VOLUME 89 fl (80.0-100.0); MEAN CORPUSCULAR HEMOGLOBIN 30 pg (27.0-31.0); MEAN CORPUSCULAR HGB CONC 34 g/dl (33.0-37.0); MEAN PLATELET VOLUME 8.5 fl (7.4-10.4); PLATELET COUNT 445 K/mm3 (130-400); RED BLOOD COUNT 3.43 M/mm3 (4.20-5.60); REDCELL DISTRIBUTION WIDTH-CV 14.2 % (11.5-14.5)
[2020-12-19 10:08] LABS: HEMATOCRIT 30.5 % (42.0-52.0)
[2020-12-19 10:13] LABS: ALBUMIN 2.6 gm/dL (3.5-5.0); BILIRUBIN,TOTAL 0.2 mg/dL (0.0-1.0); CALCIUM 8.6 mg/dL (8.4-10.2); CREATININE, serum 0.73 (0.66-1.25); POTASSIUM 3.7 mmol/L (3.4-5.0); TOTAL PROTEIN 6.1 gm/dL (6.4-8.2)
--- NOTE | 2020-12-19 20:40 | NUR ---
Assessment complete. Pt is AXO X3, states he has pain to his chest tube insertion site rated at a 3/10. Pt is resting quietly in the bed watching TV at this time and he denies further needs. Call light within reach.
[2020-12-20] VITALS (603 sets, daily range): BP systolic 94–140; BP diastolic 58–93; PULSE 62–85; TEMP 97.4–98; O2SAT 59–100
[2020-12-20 05:26] LABS: BASO % 0.1 % (0.0-2.0); EOS % 0.2 % (0-4.0); GRAN # 13.2 (1.4-6.5); GRAN % 82.6 % (42.2-75.2); LYMPH # 1.5 (1.2-3.4); LYMPH % 9.5 % (20.0-51.0); MEAN CELL VOLUME 89 fl (80.0-100.0); MEAN CORPUSCULAR HGB CONC 33 g/dl (33.0-37.0); MEAN PLATELET VOLUME 8.7 fl (7.4-10.4); MONO # 1.1 (0.1-0.6); MONO % 6.9 % (1.7-9.3); PLATELET COUNT 457 K/mm3 (130-400); REDCELL DISTRIBUTION WIDTH-CV 14.1 % (11.5-14.5)
[2020-12-20 05:27] LABS: HEMATOCRIT 29.4 % (42.0-52.0); HEMOGLOBIN 9.8 g/dl (13.5-18.0); MEAN CORPUSCULAR HEMOGLOBIN 30 pg (27.0-31.0)
[2020-12-20 05:43] LABS: ALBUMIN 2.4 gm/dL (3.5-5.0); BILIRUBIN,TOTAL 0.3 mg/dL (0.0-1.0); CREATININE, serum 0.59 (0.66-1.25); MAGNESIUM 2.1 mg/dL (1.6-2.3); POTASSIUM 3.6 mmol/L (3.4-5.0); TOTAL PROTEIN 5.5 gm/dL (6.4-8.2)
--- NOTE | 2020-12-20 07:30 | NUR ---
RECEIVED REPORT FROM AGUSTINA WHITE. PT RESTING ON 4L VIA NC. PT ASSISTED UP IN BED TO EAT BREAKFAST. CALL LIGHT AND URINAL WITHIN REACH. VSS.
--- NOTE | 2020-12-20 08:30 | NUR ---
NOTIFIED DR MASSEY ABOUT PT HAVING RUNS OF SVT THAT LAST ABOUT A MINUTE AT MOST BUT PER REPORT PT HAD ONE LAST NIGHT THAT LASTED TEN MINS. VSS DURING EVENTS. PT DOES NOT FEEL HIS HEART SPEEDING UP OR SLOWING DOWN. PROVIDER STATES TO TELL DR YAN TO MAYBE GET CARIDOLOGY INVOLVED.
--- NOTE | 2020-12-20 10:30 | NUR ---
NOTIFIED DR YAN OF PT'S HR CONCERNS AND K LEVEL THIS AM. NEW ORDERS RECEIVED.
--- NOTE | 2020-12-20 10:41 | NUR ---
Meeting Specialist attended clinical rounds with the team. Customer Care Specialist consulted. The chest tube to remain in place this day. The patient will remain in ICU this day. PT/OT consulted. *Discharge disposition at this time: Home. PT/OT consulted.
--- NOTE | 2020-12-20 14:15 | NUR ---
NOTIIFED DR JARVIS OF PT'S HR CONCERNS THIS MORNING. NO NEW ORDERS. PROVIDER STATES TO CONTINUE TO MONITOR IF PT BECOMES SYMPTOMATIC WITH EPISODES TO NOTIFY HIM.
--- NOTE | 2020-12-20 15:10 | NUR ---
DR BESS AT BEDSIDE FOR ASSESSMENT. PROVIDER STATES CAN TAKE CHEST TUBE OFF SUCTION. PERFORMED AT THIS TIME.
--- NOTE | 2020-12-20 19:53 | NUR ---
Assessment complete and charted. Patient resting in bed. Chest tube site assessed with drainage on dressing. No change from previous assessment and shift change with prior nurse. Denies needs at this time. Denies pain. Call light in reach.
--- NOTE | 2020-12-20 21:00 | NUR ---
Patient tachy 130-140 starting at 2050. Kailyn KING contacted to [phone]. EKG ordered. As respiratory therapist attaching EKG leads patient now back into sinus rhythm at 82 bpm. Kailyn KING notifed. Per Kailyn continue to monitor patient.
[2020-12-21] VITALS (414 sets, daily range): BP systolic 104–122; BP diastolic 66–85; PULSE 61–81; TEMP 97.4–98.6; O2SAT 47–100
--- NOTE | 2020-12-21 01:44 | NUR ---
Patient assisted to restroom for BM. Able to pass hard bowel movement. Denies other needs. call light in reach.
[2020-12-21 04:35] LABS: BASO % 0.3 % (0.0-2.0); EOS # 0.1 (0.0-0.7); EOS % 1.2 % (0-4.0); GRAN # 8.6 (1.4-6.5); GRAN % 79.4 % (42.2-75.2); LYMPH # 1.2 (1.2-3.4); LYMPH % 11.5 % (20.0-51.0); MEAN CELL VOLUME 90 fl (80.0-100.0); MEAN CORPUSCULAR HGB CONC 33 g/dl (33.0-37.0); MEAN PLATELET VOLUME 8.6 fl (7.4-10.4); MONO # 0.7 (0.1-0.6); MONO % 6.7 % (1.7-9.3); PLATELET COUNT 448 K/mm3 (130-400); REDCELL DISTRIBUTION WIDTH-CV 14.4 % (11.5-14.5)
[2020-12-21 04:38] LABS: HEMATOCRIT 28.9 % (42.0-52.0); HEMOGLOBIN 9.6 g/dl (13.5-18.0); MEAN CORPUSCULAR HEMOGLOBIN 30 pg (27.0-31.0)
[2020-12-21 04:49] LABS: ALBUMIN 2.4 gm/dL (3.5-5.0); BILIRUBIN,TOTAL 0.2 mg/dL (0.0-1.0); CALCIUM 8.1 mg/dL (8.4-10.2); CREATININE, serum 0.57 (0.66-1.25); POTASSIUM 3.3 mmol/L (3.4-5.0); TOTAL PROTEIN 5.6 gm/dL (6.4-8.2)
--- NOTE | 2020-12-21 06:43 | NUR ---
Patient had 3 episodes of tachycardia throughout night. Chest tube had minimal drainage. Otherwise uneventful night. Resting in bed this AM.
--- NOTE | 2020-12-21 07:00 | NUR ---
RECEIVED REPORT FROM AGUSTINA NORTH. PT RESTING IN BED WATCHING TV. URINAL AND CALL LIGHT WITHIN REACH. CHEST TUBE CLAMPED. DRESSING C/D/I. VSS.
--- NOTE | 2020-12-21 07:17 | NUR ---
Report given to Shena BERRIOS
--- NOTE | 2020-12-21 13:28 | NUR ---
REPORT GIVEN TO AGUSTINA GALLEGOS. PT TO TRANSFER TO [facility] VIA ON 4L VIA [facility]. ALL PERSONAL BELONGINGS SENT WITH PT.
--- NOTE | 2020-12-21 14:00 | NUR ---
Patient alert and oriented, answers questions appropriately. Chest tube in place to right upper chest, dressing CDI. Chest tube to water seal, moderate amount of serosanguinous drainage noted. Lungs decreased in bases, clear in upper lobes. No c/o SOA. Oxygen at 4l/nc. Generalized 1+ edema noted. Ambulates x2 assist and FWW. Right triple lumen IJ, flushes well. No c/o at this time.
--- NOTE | 2020-12-22 01:19 | NUR ---
Patient assessed at this time. Alert and oriented x 4, and able to make needs known. Denies having pain and discomfort at this time. Triple lumen central line to right IJ. Peripheral INT to right forearm. Denies having SOB and dyspnea. LS CTA in upper lobes, diminished in lower. Respirations even and unlabored. HRR. Telemetry in place. Capillary refill less than 3 seconds. Non-tenting skin turgor. BSAx4. Abdomen soft and non-tender. Using bedside urinal, tea colored urine. Chest tube to right side. Dressing CDI. Minimal output. 1+ edema BLE, 3+ BLE. Voices no questions, needs, or concerns at this time. Resting in bed with call light within reach.
[2020-12-22 04:01] VITALS: BP 122/69; PULSE 64; TEMP 98.1
--- NOTE | 2020-12-22 05:52 | NUR ---
Patient has been resting in bed with call light within reach. Has denied having pain and discomfort. Has voiced no questions, needs, or concerns this shift. Labs drawn from right IJ per orders. Should be getting a chest x-ray this morning. High fall risk precautions in place.
[2020-12-22 07:03] VITALS: BP 131/76; PULSE 69; TEMP 97.6
[2020-12-22 07:04] LABS: BASO % 0.3 % (0.0-2.0); EOS # 0.2 (0.0-0.7); EOS % 1.5 % (0-4.0); GRAN # 7.6 (1.4-6.5); GRAN % 76.8 % (42.2-75.2); HEMATOCRIT 28.4 % (42.0-52.0); HEMOGLOBIN 9.2 g/dl (13.5-18.0); LYMPH # 1.3 (1.2-3.4); LYMPH % 13.2 % (20.0-51.0); MEAN CELL VOLUME 93 fl (80.0-100.0); MEAN CORPUSCULAR HEMOGLOBIN 30 pg (27.0-31.0); MEAN CORPUSCULAR HGB CONC 32 g/dl (33.0-37.0); MEAN PLATELET VOLUME 8.9 fl (7.4-10.4); MONO # 0.7 (0.1-0.6); MONO % 7.4 % (1.7-9.3); PLATELET COUNT 432 K/mm3 (130-400); RED BLOOD COUNT 3.05 M/mm3 (4.20-5.60); REDCELL DISTRIBUTION WIDTH-CV 14.5 % (11.5-14.5)
[2020-12-22 07:35] LABS: CREATININE, serum 0.51 (0.66-1.25); POTASSIUM 3.6 mmol/L (3.4-5.0)
--- NOTE | 2020-12-22 11:30 | NUR ---
Patient is doing well this morning. He got up with PT. Denies pain and nausea. patients family has been at bedside. Chest tube intact to right side. Scant yellow drainage from chest tube. He is using the urinal. Encouraged patient to do deep breathing exercises. He has pitting edema to bilateral elbows, trunk and BLE. Encouraged him to sit in the chair but he refused. No other changes at this time. Call light within reach.
--- NOTE | 2020-12-22 12:03 | NUR ---
First visit from the pharmacy sales assistant. No needs right now.
[2020-12-22 12:15] VITALS: BP 127/76; PULSE 81; TEMP 97.8
--- NOTE | 2020-12-22 13:07 | NUR ---
Janitor Supervisor met with patient to discuss discharge planning. Patient's , Susanne is at bedside. SW reviewed PT/OT recommendations for post acute rehab vs home health. Patient and Susanne declined rehab placement. Susanne states she feels she can care for patient at home. SW discussed home health and patient states he will think about it. SW provided Medicare.gov list of HH agencies that serve [place]. MARIBELL will continue to follow up. Discharge Plan: Home with possible HH services.
[2020-12-22 16:20] VITALS: BP 125/90; PULSE 84; TEMP 97.4
--- NOTE | 2020-12-22 18:30 | NUR ---
Dr Hutson removed chest tube around 173. Patient has been doing well this afternoon. He was upset because they gave him IV lasix. He has voided about 1500ml of clear yellow urine since getting the lasix and the fluids were discontinued. He did not have a bowel movement today. No other changes at this time. Call light within reach. Patient denies any pain or shortness of breath since chest tube removed. Bed alarm on.
[2020-12-22 20:00] VITALS: BP 126/76; PULSE 86; TEMP 97.8
--- NOTE | 2020-12-22 23:00 | NUR ---
Pt has done well this evening. No pain complaints. Dressing to his right chest is CDI. Pt is using the urinal for urinating and notified nursing when he is done. Arm and leg edema noted. Elevated arms on pillows.
[2020-12-22 23:46] VITALS: BP 122/78; PULSE 65; TEMP 97.7
--- NOTE | 2020-12-23 03:00 | NUR ---
Assisted pt to the commode for BM. Pt was incontinent of bowel. Bed changed and then assisted pt back to bed. He did well with 1-2 assist, no pain complaints with transfer
[2020-12-23 03:02] VITALS: BP 120/74; PULSE 61; TEMP 98.8
[2020-12-23 06:51] LABS: BASO % 0.5 % (0.0-2.0); EOS # 0.2 (0.0-0.7); EOS % 2.1 % (0-4.0); GRAN # 6.3 (1.4-6.5); GRAN % 73.7 % (42.2-75.2); LYMPH # 1.3 (1.2-3.4); LYMPH % 15.4 % (20.0-51.0); MEAN CELL VOLUME 90 fl (80.0-100.0); MEAN CORPUSCULAR HGB CONC 33 g/dl (33.0-37.0); MEAN PLATELET VOLUME 8.7 fl (7.4-10.4); MONO # 0.7 (0.1-0.6); MONO % 7.7 % (1.7-9.3); PLATELET COUNT 432 K/mm3 (130-400); RED BLOOD COUNT 3.15 M/mm3 (4.20-5.60); REDCELL DISTRIBUTION WIDTH-CV 14.5 % (11.5-14.5)
--- NOTE | 2020-12-23 06:55 | NUR ---
appears to be sleeping, bedside shift report received from AGUSTINA Balderas
[2020-12-23 07:01] LABS: HEMATOCRIT 28.3 % (42.0-52.0); HEMOGLOBIN 9.4 g/dl (13.5-18.0); MEAN CORPUSCULAR HEMOGLOBIN 30 pg (27.0-31.0)
[2020-12-23 07:02] LABS: CALCIUM 8.4 mg/dL (8.4-10.2); CREATININE, serum 0.63 (0.66-1.25); POTASSIUM 3.4 mmol/L (3.4-5.0)
--- NOTE | 2020-12-23 07:20 | NUR ---
repositioned up in bed and ready for breakfast
[2020-12-23 08:18] VITALS: BP 113/66; PULSE 87; TEMP 97.3
--- NOTE | 2020-12-23 09:00 | NUR ---
Dr Singh and care team in to see patient, at bedside, plan for discharge/SNF discussed with and patient, patient continues to state he wants to go home, states she will visit with him and if they change their mind will notify this nurse, full assessment completed, see interventions for further info,
--- NOTE | 2020-12-23 09:45 | NUR ---
physical therapy in to work with patient and cardiopulmonary in to complete exercise oximetry, patietn ambulated into bathroom and then out of bathroom and over to recliner, coccyx is red and has 2mm sore area on right buttock, mepiplex placed
[2020-12-23] MEDS ORDERED: INVANZ INJ1 G/VIAL IV (11:40)
--- NOTE | 2020-12-23 12:10 | NUR ---
remains up in chair, had lunch and tolerated well
[2020-12-23 12:22] VITALS: BP 122/83; PULSE 88; TEMP 97.9
--- NOTE | 2020-12-23 13:00 | NUR ---
physical therapy in and walking patient in the room and assisting back to bed
--- NOTE | 2020-12-23 13:57 | NUR ---
in bed and appears to be sleeping, back at bedside
--- NOTE | 2020-12-23 14:40 | NUR ---
TAYLOR Guillen services nurse in to place PICC
--- NOTE | 2020-12-23 15:40 | NUR ---
central line right IJ removed under sterile technique and pressure held times 5 minutes, tolerated procedure well
[2020-12-23 16:09] VITALS: BP 119/74; PULSE 79; TEMP 97.7
--- NOTE | 2020-12-23 16:48 | NUR ---
Bookmaker'S Clerk attended clinical rounds with the team and Hospitalist again advised that PT/OT are recommending rehab placement. Patient states he wants to return home and his is supportive of this. Patient does not want Home Health and instead wants outpatient PT. Per RT, patient does not qualify for home oxygen. Patient will need once daily IV Envance for three weeks and plans to get [facility] at [facility]. MARIBELL faxed referral and orders to Rh[facility] at [facility] and first appointment will be Saturday at 0845 as patient should discharge home tomorrow. MARIBELL also contacted [facility] and scheduled first PT appointment for 01/04 at 0900. MARIBELL provided both appointments to patient and patient's . Discharge Plan: Home tomorrow
--- NOTE | 2020-12-23 18:39 | NUR ---
repositioned in bed, bedside shift report given to AGUSTINA Balderas
[2020-12-23 19:27] VITALS: BP 119/77; PULSE 80; TEMP 97.2
--- NOTE | 2020-12-23 20:50 | NUR ---
PT resting in bed, no pain complaints. Abx infusing to picc line in right arm. Drsg to right side of neck from previous IJ is CDI. Mepilex in place to coccyx. Pt reports having a good day today. No needs at this time
[2020-12-23 23:13] VITALS: BP 124/77; PULSE 80; TEMP 97.7
--- NOTE | 2020-12-23 23:30 | NUR ---
Pt rang call light to use the restroom. Pt was a one assist to the restroom.
[2020-12-24 03:22] VITALS: BP 121/68; PULSE 56; TEMP 97.8
--- NOTE | 2020-12-24 06:07 | NUR ---
Pt rested most of the night. Area to right side of coccyx appears to be an old open area, approximately pea sized. Dressing applied during evening assessment still CDI. No pain complaints
[2020-12-24 06:42] LABS: BASO # 0.1 (0.0-0.2); BASO % 0.7 % (0.0-2.0); EOS # 0.1 (0.0-0.7); EOS % 1.6 % (0-4.0); GRAN # 5.6 (1.4-6.5); GRAN % 68.9 % (42.2-75.2); LYMPH # 1.5 (1.2-3.4); LYMPH % 18.5 % (20.0-51.0); MEAN CELL VOLUME 88 fl (80.0-100.0); MEAN CORPUSCULAR HGB CONC 33 g/dl (33.0-37.0); MEAN PLATELET VOLUME 8.9 fl (7.4-10.4); MONO # 0.8 (0.1-0.6); MONO % 9.6 % (1.7-9.3); PLATELET COUNT 423 K/mm3 (130-400); RED BLOOD COUNT 3.07 M/mm3 (4.20-5.60); REDCELL DISTRIBUTION WIDTH-CV 14.5 % (11.5-14.5)
[2020-12-24 06:50] LABS: HEMATOCRIT 27.1 % (42.0-52.0); MEAN CORPUSCULAR HEMOGLOBIN 29 pg (27.0-31.0)
[2020-12-24 06:53] LABS: CALCIUM 8.2 mg/dL (8.4-10.2); CREATININE, serum 0.63 (0.66-1.25); POTASSIUM 3.3 mmol/L (3.4-5.0)
[2020-12-24 07:15] VITALS: BP 139/74; PULSE 70; TEMP 98.2
[2020-12-24] MEDS ORDERED: LANOXIN 0.120.125 MG PO (09:03)
[2020-12-24] MEDS ORDERED: LASIX 40MG TABL40 MG PO (09:04)
[2020-12-24] MEDS ORDERED: XOPENEX HF0.045 MG/A IH (09:07)
--- NOTE | 2020-12-24 09:35 | NUR ---
Received phone call from Dr Rodriguez, updated patient status.
--- NOTE | 2020-12-24 09:45 | NUR ---
Patient alert and oriented, answers questions appropriately. See assessment. Lungs decreased in bases, clear in upper lobes. VSS. Respers even and unlabored. Previous chest tube site with dressing CDI. No c/o at this time.
--- NOTE | 2020-12-24 11:30 | NUR ---
Discharge instructions reviewed with patient and spouse, verbalized understanding. Discharged via wheelchair to auto/home with spouse at 1130.
== END 2020-12-24 11:30 | disposition home or self-care (01) | DRG 871 ==
LOC: COL.ER 07:51 → ICU 11:07 → SURG 12-21 15:51
PROVIDERS: Emergency Medicine; Family Medicine; Internal Medicine; Internal Medicine Sleep Medicine; Physician Assistant; ADMIT Internal Medicine
PROC: 0W993ZZ Drainage of Right Pleural Cavity, Percutaneous Approach (ICD-10-PCS; principal; 2020-12-17)
PROC: 0W9930Z Drainage of Right Pleural Cavity with Drainage Device, Percutaneous Approach (ICD-10-PCS; 2020-12-18)
PROC: 05HM33Z Insertion of Infusion Device into Right Internal Jugular Vein, Percutaneous Approach (ICD-10-PCS; 2020-12-18)
PROC: 02HV33Z Insertion of Infusion Device into Superior Vena Cava, Percutaneous Approach (ICD-10-PCS; 2020-12-23)
DX: A41.9 Sepsis, unspecified organism (principal); J18.9 Pneumonia, unspecified organism; J86.9 Pyothorax without fistula; J96.01 Acute respiratory failure with hypoxia; E22.2 Syndrome of inappropriate secretion of antidiuretic hormone; N39.0 Urinary tract infection, site not specified; J90 Pleural effusion, not elsewhere classified; I47.1 Supraventricular tachycardia; R65.20 Severe sepsis without septic shock; Z85.51 Personal history of malignant neoplasm of bladder; H40.9 Unspecified glaucoma; Z96.641 Presence of right artificial hip joint; Z20.822 Contact with and (suspected) exposure to COVID-19; Z87.891 Personal history of nicotine dependence; D64.9 Anemia, unspecified
CPT/HCPCS: 99223-AI; 99232-AI; 99233-AI; 99239; A7048; A9284; C1751; J0456; J0696; J1160; J1335; J1650; J1940; J2250; J2270; J2405; J2543; J2997; J3370; J7030; J7050; J7060; Q9967

== ENCOUNTER → 2020-12-30 | Outpatient (CLI) | payer MEDICARE, BC ==
[~2020-12-30] MED LIST changes: +INVANZ INJ1 G/VIAL IV; +LANOXIN 0.120.125 MG PO; +LASIX 40MG TABL40 MG PO; +XOPENEX HF0.045 MG/A IH
== END ==
LOC: ZCOL.LAB 14:20
DX: N39.0 Urinary tract infection, site not specified (principal)

== ENCOUNTER 2021-01-13 09:00 | Outpatient (RCR) | payer MEDICARE, BC ==
[2020-12-25 09:00] VITALS: BP 102/64; PULSE 73; TEMP 97.9
--- NOTE | 2020-12-25 09:00 | NUR ---
pt is on multiple supplements at home, reviewed RX meds with ,
[2020-12-26 09:28] VITALS: BP 95/60; PULSE 78; TEMP 98
[2020-12-27 09:11] VITALS: BP 93/59; PULSE 87; TEMP 97.6
[2020-12-28 09:04] VITALS: BP 92/64; PULSE 91; TEMP 98.3
[2020-12-28 09:14] LABS: MEAN CELL VOLUME 92 fl (80.0-100.0); MEAN CORPUSCULAR HGB CONC 32 g/dl (33.0-37.0); MEAN PLATELET VOLUME 8.9 fl (7.4-10.4); PLATELET COUNT 423 K/mm3 (130-400); RED BLOOD COUNT 3.33 M/mm3 (4.20-5.60)
[2020-12-28 09:18] LABS: HEMATOCRIT 30.7 % (42.0-52.0); HEMOGLOBIN 9.9 g/dl (13.5-18.0); MEAN CORPUSCULAR HEMOGLOBIN 30 pg (27.0-31.0)
[2020-12-28 09:31] LABS: ALANINE AMINOTRANSFERASE 34 U/L (4-49); ALBUMIN 2.9 gm/dL (3.5-5.0); ALKALINE PHOSPHATASE 60 U/L (50-136); ANION GAP -2 mmol/L (7-16); AST,SGOT 30 U/L (15-37); BILIRUBIN,TOTAL < 0.1 mg/dL (0.0-1.0); BLOOD UREA NITROGEN 24 mg/dL (9-20); CALCIUM 9.3 mg/dL (8.4-10.2); CARBON DIOXIDE 36 mmol/L (22-30); CHLORIDE 108 mmol/L (98-107); CREATININE, serum 0.86 (0.66-1.25); GLUCOSE 121 mg/dL (74-106); POTASSIUM 3.6 mmol/L (3.4-5.0); SODIUM 142 mmol/L (137-145); TOTAL PROTEIN 6.9 gm/dL (6.4-8.2)
[2020-12-29 09:05] VITALS: BP 102/66; PULSE 81; TEMP 97.8
[2020-12-30 09:10] VITALS: BP 104/68; PULSE 80; TEMP 98
[2020-12-31 09:44] VITALS: BP 102/66; PULSE 85; TEMP 97
[2021-01-01 09:29] VITALS: BP 102/66; PULSE 87; TEMP 98.7
[2021-01-02 09:27] VITALS: BP 100/65; PULSE 83; TEMP 97.8
[2021-01-02 10:07] LABS: BASO # 0.1 (0.0-0.2); BASO % 0.7 % (0.0-2.0); EOS # 0.1 (0.0-0.7); EOS % 1.2 % (0-4.0); GRAN # 4.6 (1.4-6.5); GRAN % 66.5 % (42.2-75.2); LYMPH # 1.4 (1.2-3.4); LYMPH % 20.9 % (20.0-51.0); MEAN CELL VOLUME 92 fl (80.0-100.0); MEAN CORPUSCULAR HEMOGLOBIN 30 pg (27.0-31.0); MEAN CORPUSCULAR HGB CONC 32 g/dl (33.0-37.0); MONO # 0.7 (0.1-0.6); MONO % 10.3 % (1.7-9.3); PLATELET COUNT 398 K/mm3 (130-400); RED BLOOD COUNT 3.39 M/mm3 (4.20-5.60); REDCELL DISTRIBUTION WIDTH-CV 15.7 % (11.5-14.5)
[2021-01-02 10:11] LABS: HEMATOCRIT 31.3 % (42.0-52.0)
[2021-01-02 10:15] LABS: ALBUMIN 2.9 gm/dL (3.5-5.0); BILIRUBIN,TOTAL 0.2 mg/dL (0.0-1.0); CREATININE, serum 0.85 (0.66-1.25); POTASSIUM 3.7 mmol/L (3.4-5.0); TOTAL PROTEIN 6.8 gm/dL (6.4-8.2)
[2021-01-02 10:34] LABS: ERYTHROCYTE SEDIMENTATION RATE 73 mm/hr (0-30)
[2021-01-02 10:36] LABS: C-REACTIVE PROTEIN 2.4 mg/dL (0.0-0.9)
[2021-01-03 08:59] VITALS: BP 92/61; PULSE 76; TEMP 97.8
[2021-01-04 09:23] VITALS: BP 98/60; PULSE 84; TEMP 97.7
[2021-01-05 10:07] VITALS: BP 98/66; PULSE 77; TEMP 97.4
[2021-01-06 09:03] VITALS: BP 97/63; PULSE 77; TEMP 98
[2021-01-07 09:20] VITALS: BP 103/67; PULSE 67; TEMP 97.9
[2021-01-08 08:45] VITALS: BP 102/67; PULSE 75; TEMP 98.3
[2021-01-09 08:58] VITALS: BP 103/66; PULSE 74; TEMP 97.6
[2021-01-09 09:07] LABS: BASO % 0.6 % (0.0-2.0); EOS # 0.1 (0.0-0.7); EOS % 0.9 % (0-4.0); GRAN # 3.9 (1.4-6.5); GRAN % 60.2 % (42.2-75.2); HEMOGLOBIN 10.9 g/dl (13.5-18.0); LYMPH # 1.9 (1.2-3.4); LYMPH % 29.2 % (20.0-51.0); MEAN CELL VOLUME 92 fl (80.0-100.0); MEAN CORPUSCULAR HEMOGLOBIN 30 pg (27.0-31.0); MEAN CORPUSCULAR HGB CONC 32 g/dl (33.0-37.0); MEAN PLATELET VOLUME 8.7 fl (7.4-10.4); MONO # 0.6 (0.1-0.6); MONO % 8.8 % (1.7-9.3); PLATELET COUNT 354 K/mm3 (130-400); RED BLOOD COUNT 3.68 M/mm3 (4.20-5.60); REDCELL DISTRIBUTION WIDTH-CV 15.9 % (11.5-14.5)
[2021-01-09 09:08] LABS: HEMATOCRIT 33.7 % (42.0-52.0)
[2021-01-09 09:30] LABS: ERYTHROCYTE SEDIMENTATION RATE 46 mm/hr (0-30)
[2021-01-09 09:31] LABS: ALBUMIN 3.1 gm/dL (3.5-5.0); BILIRUBIN,TOTAL 0.4 mg/dL (0.0-1.0); C-REACTIVE PROTEIN 0.9 mg/dL (0.0-0.9); CALCIUM 9.2 mg/dL (8.4-10.2); CREATININE, serum 0.79 (0.66-1.25); TOTAL PROTEIN 7.2 gm/dL (6.4-8.2)
[2021-01-10 09:08] VITALS: BP 114/73; PULSE 70; TEMP 97.6
[2021-01-11 09:06] VITALS: BP 124/75; PULSE 79; TEMP 97.3
[2021-01-12 08:57] VITALS: BP 116/76; PULSE 73; TEMP 97.6
[~2021-01-13] VITALS: Ht 177.8 cm; Wt 63.1 kg
[2021-01-13 09:11] VITALS: BP 96/61; PULSE 71; TEMP 97.6
== END 2021-01-13 10:30 | disposition home or self-care (01) ==
LOC: EUO 09:00
PROVIDERS: Internal Medicine; Internal Medicine Infectious Disease
DX: Z79.899 Other long term (current) drug therapy (principal)
CPT/HCPCS: J1335

== ENCOUNTER 2021-12-20 11:08 | Day surgery (SDC) | payer MEDICARE, BC ==
[~2021-12-20] VITALS: Ht 177.8 cm; Wt 66.0 kg
[~2021-12-20 11:08] MED LIST changes: -PROBIOTIC FORMU1 CAP PO; +PROBIOTIC-MAJOR PO
[2021-12-20 12:13] VITALS: BP 157/90; PULSE 71; TEMP 97.6
[2021-12-20 15:40] VITALS: BP 132/87; PULSE 74
--- NOTE | 2021-12-20 15:40 | NUR ---
Patient returns to room 5 per cart from PACU accompanied by Vicki BERRIOS and is awake and alert. Shaffer catheter to dependent drainage with pink tinged urine. On oxygen at 1L per nasal cannula and sats 97%. Temp 97.7. Siderails up x2 and call light in reach. Spouse in room. Drinking water.
[2021-12-20 15:55] VITALS: BP 125/92; PULSE 76
--- NOTE | 2021-12-20 15:55 | NUR ---
Drinking juice and eating muffin. Sats 97% on 1L. Denies pain. Urine less pink.
[2021-12-20 16:10] VITALS: BP 121/95; PULSE 69
--- NOTE | 2021-12-20 16:10 | NUR ---
Tolerates muffin and juice. Shaffer draining pink tinged urine. Continues to deny pain or nausea.
[2021-12-20 16:11] VITALS: TEMP 97.7
[2021-12-20 16:25] VITALS: BP 134/88; PULSE 73
--- NOTE | 2021-12-20 16:25 | NUR ---
Dr. Farris in the room. Talks with patient and spouse. Urine cleared and Dr. Farris states cerda can by removed and patient may be discharged to home without urinating.
--- NOTE | 2021-12-20 16:33 | NUR ---
Shaffer catheter discontinued and few drops of blood noted on meatus. IV converted to INT. Patient assisted with dressing by spouse.
--- NOTE | 2021-12-20 17:10 | NUR ---
Dismissal instructions given and signed. Patient voices understanding of these.
--- NOTE | 2021-12-20 17:19 | NUR ---
Patient dismissed to home driven by spouse and taken to vehicle per wheelchair and assisted into car with dismissal instructions in hand.
== END 2021-12-20 17:19 | disposition home or self-care (01) ==
LOC: SDCO 11:08
DX: N21.0 Calculus in bladder (principal); R35.0 Frequency of micturition; Z85.51 Personal history of malignant neoplasm of bladder; Z87.891 Personal history of nicotine dependence
CPT/HCPCS: J0690; J1100; J2405; J2704; J3010; J7120

== ENCOUNTER 2021-12-28 20:29 | Emergency (ER) | payer MEDICARE, BC ==
[~2021-12-28] VITALS: Ht 177.8 cm; Wt 65.9 kg
[2021-12-28 20:41] VITALS: TEMP 97.6
[2021-12-28 21:39] LABS: BASO # 0.1 K/mm3 (0.0-0.2); EOS # 0.2 K/mm3 (0.0-0.7); EOS % 3.4 % (0.0-4.0); GRAN # 4.1 K/mm3 (1.4-6.5); GRAN % 57.1 % (42.2-75.2); HEMATOCRIT 37.1 % (42.0-52.0); HEMOGLOBIN 12.6 g/dl (13.5-18.0); LYMPH # 1.9 K/mm3 (1.2-3.4); LYMPH % 26.2 % (20.0-51.0); MEAN CELL VOLUME 94 fl (80.0-100.0); MEAN CORPUSCULAR HEMOGLOBIN 32 pg (27-31); MEAN CORPUSCULAR HGB CONC 34 g/dl (33.0-37.0); MEAN PLATELET VOLUME 8.7 fl (7.4-10.4); MONO # 0.9 K/mm3 (0.1-0.6); MONO % 12.2 % (1.7-9.3); PLATELET COUNT 266 K/mm3 (130-400); RED BLOOD COUNT 3.93 M/mm3 (4.20-5.60); REDCELL DISTRIBUTION WIDTH-CV 14.5 % (11.5-14.5)
[2021-12-28 22:13] LABS: CREATININE, serum 0.89 mg/dL (0.72-1.25); POTASSIUM 4.1 mmol/L (3.5-4.5)
[2021-12-28 22:27] LABS: COLLECTION METHOD CATHETER
[2021-12-28 22:58] LABS: PH 7 (5-8); SQUAMOUS EPITHELIAL None Seen /hpf (0-10); URINE APPEARANCE Cloudy (CLEAR/HAZY); URINE BACTERIA Moderate /hpf (NONE SEEN); URINE BILIRUBIN Negative (NEGATIVE); URINE BLOOD 2+ (NEGATIVE); URINE CALCIUM OXALATE CRYSTAL Present (NOT PRESENT); URINE COLOR Yellow (YELLOW); URINE GLUCOSE Negative (NEGATIVE); URINE KETONE Trace (NEGATIVE); URINE LEUKOCYTE ESTERASE 3+ (NEGATIVE); URINE NITRATE Negative (NEGATIVE); URINE PROTEIN(semi-quant) 2+ (NEGATIVE); URINE RBC >50 /hpf (0-2); URINE UROBILINOGEN Negative (NEGATIVE)
[2021-12-28] MEDS ORDERED: CEFTIN500 MG PO (23:18)
[2021-12-28 23:49] VITALS: BP 105/78; PULSE 68
[2021-12-30] MEDS ORDERED: MACROBID 1100 MG/CAP PO (10:21)
== END 2021-12-29 00:05 | disposition home or self-care (01) ==
LOC: COL.ER 20:29
PROVIDERS: Emergency Medicine
DX: N39.0 Urinary tract infection, site not specified (principal); Z85.51 Personal history of malignant neoplasm of bladder; Z88.2 Allergy status to sulfonamides
CPT/HCPCS: J0696; J7030

== ENCOUNTER 2022-03-27 09:45 | Outpatient (RCR) | payer MEDICARE, BC ==
[~2022-03-27 09:45] MED LIST changes: +CEFTIN500 MG PO
== END 2022-03-28 | disposition home or self-care (01) ==
LOC: WSOT
DX: M24.542 Contracture, left hand (principal)

== ENCOUNTER 2022-04-26 15:46 | Emergency (ER) | payer MEDICARE, BC ==
[~2022-04-26] VITALS: Ht 177.8 cm; Wt 65.9 kg
[2022-04-26 16:00] VITALS: TEMP 97.5
[2022-04-26 16:59] LABS: BASO # 0.1 K/mm3 (0.0-0.2); EOS # 0.1 K/mm3 (0.0-0.7); EOS % 1.7 % (0.0-4.0); HEMATOCRIT 37.8 % (42.0-52.0); HEMOGLOBIN 12.7 g/dl (13.5-18.0); LYMPH # 1.4 K/mm3 (1.2-3.4); LYMPH % 27.7 % (20.0-51.0); MEAN CELL VOLUME 95 fl (80.0-100.0); MEAN CORPUSCULAR HEMOGLOBIN 32 pg (27-31); MEAN CORPUSCULAR HGB CONC 34 g/dl (33.0-37.0); MONO # 0.6 K/mm3 (0.1-0.6); MONO % 11.4 % (1.7-9.3); PLATELET COUNT 266 K/mm3 (130-400); RED BLOOD COUNT 3.98 M/mm3 (4.20-5.60); REDCELL DISTRIBUTION WIDTH-CV 14.5 % (11.5-14.5)
[2022-04-26 17:22] LABS: ALBUMIN 3.4 gm/dL (3.4-4.8); BILIRUBIN,TOTAL 0.4 mg/dL (0.2-1.2); CALCIUM 9.1 mg/dL (8.4-10.2); CREATININE, serum 0.79 mg/dL (0.72-1.25); TOTAL PROTEIN 6.3 gm/dL (6.2-8.1)
[2022-04-26] MEDS ORDERED: NORCO 325 MG-51 TAB PO (18:20)
[2022-04-26 18:25] VITALS: BP 133/77; PULSE 88
== END 2022-04-26 18:25 | disposition home or self-care (01) ==
LOC: COL.ER 15:46
PROVIDERS: Personal Emergency Response Attendant
DX: S70.01XA Contusion of right hip, initial encounter (principal); S50.01XA Contusion of right elbow, initial encounter; S40.011A Contusion of right shoulder, initial encounter; W01.0XXA Fall on same level from slipping, tripping and stumbling without subsequent striking against object, initial encounter; Y92.093 Driveway of other non-institutional residence as the place of occurrence of the external cause

== ENCOUNTER 2022-10-24 09:45 | Outpatient (RCR) | payer MEDICARE, BC | END 2022-10-26 | disposition home or self-care (01) | LOC: WSPT | DX: R53.81 Other malaise (principal); R29.6 Repeated falls ==

== ENCOUNTER → 2022-11-01 | Outpatient (CLI) | payer MEDICARE, BC | LOC: COL.RAD 13:31 | DX: G31.9 Degenerative disease of nervous system, unspecified (principal); J32.0 Chronic maxillary sinusitis; J32.2 Chronic ethmoidal sinusitis; J34.2 Deviated nasal septum; G25.2 Other specified forms of tremor ==

== ENCOUNTER 2022-11-21 09:45 | Outpatient (RCR) | payer MEDICARE, BC | END 2022-11-25 | disposition home or self-care (01) | LOC: WSPT | DX: R53.81 Other malaise (principal); W19.XXXD Unspecified fall, subsequent encounter ==